=== PATIENT | female | born 1950 | race Caucasian/White ===

== ENCOUNTER 2017-08-10 15:45 | Emergency (ER) | payer MEDICARE, MEDICAID ==
[2017-08-10 15:45] VITALS: BMI 26.2
[2017-08-10] MEDS ORDERED: Iohexol 240 (50 ml) ONE (16:10)
[2017-08-10 16:57] LABS: SQUAMOUS EPITHIAL 4 /hpf (0-5); URINE BILIRUBIN NEGATIVE (NEGATIVE); URINE BLOOD NEGATIVE (NEGATIVE); URINE CLARITY SLIGHTY-CLOUDY (Clear); URINE COLOR YELLOW (YELLOW); URINE GLUCOSE (UA) NEG (Normal); URINE LEUKOCYTE ESTERASE TRACE Leu/uL (Negative); URINE NITRATE NEGATIVE (NEGATIVE); URINE PROTEIN 30 mg/dL (NEGATIVE); URINE UROBILINOGEN 0.2-1.0 mg/dL (0.2-1.0)
[2017-08-10 17:01] LABS: BASO # 0.1 K/uL (0.0-0.2); BASO % 0.7 % (0.0-2.0); EOS # 0.3 K/uL (0.0-0.7); EOS % 4.2 % (0.0-4.0); HEMOGLOBIN 12.2 g/dL (12.0-16.0); LYMPH # 1.6 K/uL (1.0-4.3); LYMPH % 20.6 % (20.0-40.0); MEAN CELL VOLUME 92.3 fl (81.0-99.0); MEAN CORPUSCULAR HEMOGLOBIN 31.2 pg (27.0-31.0); MEAN CORPUSCULAR HGB CONC 33.9 g/dL (33.0-37.0); MEAN PLATELET VOLUME 8.8 fl (7.2-11.7); MONO # 0.5 K/uL (0.0-0.8); MONO % 6.1 % (0.0-10.0); NEUT # 5.4 K/uL (1.8-7.0); NEUT % 68.4 % (50.0-75.0); NRBC % 0.2 % (0.0-0.0); RBC 3.9 Mil/uL (3.80-5.20); RED CELL DISTRIBUTION WIDTH 13.6 % (11.5-14.5); WHITE BLOOD COUNT 7.9 K/uL (4.8-10.8)
[2017-08-10 17:13] LABS: ALB/GLOB RATIO 1.1 (1.0-2.1); ALBUMIN 3.9 g/dL (3.5-5.0); ALT/SGPT 31 U/L (9-52); AST/SGOT 30 U/L (14-36); BLOOD UREA NITROGEN 16 mg/dl (7-17); CALCIUM 9.4 mg/dL (8.4-10.2); GFR AFRICAN-AMERICAN > 60; GFR NON-AFRICAN AMERICAN > 60; LIPASE 103 U/L (23-300)
[2017-08-10] MEDS ORDERED: Sodium Chloride 0.9% 50 ML IV ONE (17:20)
[2017-08-10] MEDS ORDERED: Iohexol 300 100 ML IJ ONE (17:20)
--- NOTE | 2017-08-10 18:09 | ED PDOC ---
HPI: Abdomen Time Seen by Provider: 08/10/17 15:57 Chief Complaint (Nursing): Abdominal Pain Chief Complaint (Provider): RLQ pain History Per: Patient History/Exam Limitations: no limitations Location Of Pain/Discomfort: RLQ Quality Of Discomfort: Stabbing Associated Symptoms: Nausea, Back Pain. denies: Vomiting, Loss Of Appetite, Constipation, Urinary Symptoms Additional Complaint(s): 66yo F in ED for eval of acute RLQ pain noted while at her daughters wedding- sates pain was sharp intense causing her to be very nauseous. admits to similar symptoms not as intense in past 2 days. no change in BM no vomiting no fever no chills. pt states abd pain radiated to the back Abnormal Vaginal Bleeding: No Past Medical History Reviewed: Historical Data, Nursing Documentation, Vital Signs Vital Signs: Last Vital Signs Temp 98.5 F 08/10/17 15:51 Pulse 66 08/10/17 15:51 Resp 16 08/10/17 15:51 BP 158/78 H 08/10/17 15:51 Pulse Ox 100 08/10/17 18:24 - Medical History PMH: Anemia, Gall Bladder Disease (GALLSTONES CHOLECTSTECTOMY), HTN, Osteoporosis (OSTEOPENIA), Peripheral Edema (ONLY IN HUMOD WEATHER NOT AT PRESENT) - Surgical History Surgical History: Cholecystectomy - Family History Family History: States: No Known Family Hx - Home Medications Home Medications: Ambulatory Orders Medication Instructions Recorded Hydrochlorothiazide/Losartan 1 tab PO BID 03/13/14 [Losartan Potassium-Hydrochlorothiazide 12.5 M] Meclizine [Antivert] 12.5 mg PO DAILY 03/13/14 Ibuprofen [Motrin] 400 mg PO Q6 #30 tab 08/10/17 - Allergies Allergies/Adverse Reactions: Allergies Allergy/AdvReac Type Severity Reaction Status Date / Time tetanus and diphtheria Allergy SWELLING Verified 08/10/17 15:54 toxoids risedronate sodium AdvReac SHORTNESS Verified 08/10/17 15:54 [From Actonel] OF BREATH OSTEOPOROSIS MEDICINE AdvReac Severe SHORTNESS Uncoded 03/10/14 14:03 OF BREATH Review of Systems ROS Statement: Except As Marked, All Systems Reviewed And Found Negative Constitutional: Negative for: Fever, Chills Respiratory: Negative for: Cough Physical Exam - Reviewed Nursing Documentation Reviewed: Yes Vital Signs Reviewed: Yes - Physical Exam Appears: Positive for: Well, Non-toxic, No Acute Distress Skin: Positive for: Normal Color, Warm, DRY Cardiovascular/Chest: Positive for: Regular Rate, Rhythm Respiratory: Positive for: CNT, Normal Breath Sounds Gastrointestinal/Abdominal: Positive for: Tenderness (RLQ), Guarding. Negative for: Organomegaly, Mass, Distended Neurologic/Psych: Positive for: Alert, Oriented - Laboratory Results Result Diagrams: 08/10/17 16:30 08/10/17 16:30 - ECG O2 Sat by Pulse Oximetry: 100 - Progress ED Course And Treament: Orders Category Date Time Status ABD & PELVIS IV CONTRAST ONLY [CT] Stat CT 08/10/17 16:31 Completed COMP METABOLIC PANEL Stat Chem 08/10/17 16:30 Completed LIPASE Stat Chem 08/10/17 16:30 Completed CBC (WITH DIFFERENTIAL) Stat NITIN 08/10/17 16:30 Completed Iohexol [Omnipaque 240 (50 ML)] Med 08/10/17 16:10 Discontinued 50 ml .ROUTE .STK-MED ONE Iohexol [Omnipaque 300 100 ML] Med 08/10/17 17:20 Discontinued 100 ml IJ .STK-MED ONE Ketorolac [Toradol] Med 08/10/17 16:10 Discontinued 30 mg .ROUTE .STK-MED ONE Ketorolac [Toradol] Med 08/10/17 15:58 Discontinued 30 mg IVP STAT STA Sodium Chloride 0.9% 50 ml Med 08/10/17 17:20 Discontinued IV .STK-MED BLOOD CULTURE Stat Micro 08/10/17 16:30 Received Ski Instructor CONT NURSING 08/10/17 15:58 Active IV Insertion (Saline Lock) ONCE NURSING 08/10/17 15:58 Active URINALYSIS Stat URINALYSIS 08/10/17 16:30 Completed Re-evaluation Time: 18:47 Condition: Improved Medical Decision Making Medical Decision Making: CT results: ABDOMEN: Liver: There is fatty infiltration of the liver. Gallbladder and bile ducts: Gallbladder is absent.There is prominence of the common duct. Pancreas: unremarkable Spleen: unremarkable Adrenals: unremarkable Kidneys and ureters: There is a left renal cyst.Kidneys and ureters are otherwise unremarkable. Stomach and bowel: Stomach is almost completely empty. Rotation is normal. Small bowel is partially opacified with oral contrast. There is no obstruction. There is fecalization of the terminal ileum.There is no pericecal inflammation. There is moderate stool in the colon. Appendix: See stomach and bowel PELVIS: Bladder: unremarkable Reproductive: Uterus is absent. There are no adnexal masses. ABDOMEN and PELVIS: Intraperitoneal space: There are multiple phleboliths.There is no free air or free fluid. Bones/joints: Bony structures are osteopenic. There are degenerative changes. Soft tissues: unremarkable Vasculature: Vascular structures are unremarkable. Lymph nodes: There is no pathologic adenopathy. IMPRESSION: Prominent common duct status post cholecystectomy; fatty liver; hysterectomy; nonvisualization the appendix but no CT findings of appendicitis; possible constipation Additional findings as described above no evidence of appendicitis, renal stones or adenexal mass. pt may have mesenteric adentitis as a cause of her pain Pt advised to consume motrin for any pain and f.u with pmd. Disposition - Clinical Impression Clinical Impression: Abdominal pain - Patient ED Disposition Is Patient to be Admitted: No Counseled Patient/Family Regarding: Studies Performed, Diagnosis, Need For Followup, Rx Given - Disposition Referrals: Sonido Hoffman MD [Staff Provider] - Disposition: Routine/Home Disposition Time: 18:50 Condition: STABLE Additional Instructions: please make sure you follow up with your doctor as soon as possible Prescriptions: Ibuprofen [Motrin] 400 mg PO Q6 #30 tab Instructions: Mesenteric Adenitis (ED) Print Language: NEPALI
--- NOTE | 2017-08-10 18:33 | CT ---
EXAM: CT Abdomen and Pelvis With Intravenous Contrast EXAM DATE/TIME: 08/10/2017 4:31 PM CLINICAL HISTORY: 66 years old, female; Pain; Abdominal pain; Generalized; Additional info: Rlq pain TECHNIQUE: Axial computed tomography images of the abdomen and pelvis with intravenous contrast. All CT scans at this facility use one or more dose reduction techniques, viz.: automated exposure control; ma/kV adjustment per patient size (including targeted exams where dose is matched to indication; i.e. head); or iterative reconstruction technique. Coronal and sagittal reformatted images were created and reviewed. CONTRAST: 95 mL of [id number] administered intravenously. COMPARISON: There are no prior studies for comparison. FINDINGS: Lower thorax: Heart size is normal. There is atelectasis and scarring at the lung bases ABDOMEN: Liver: There is fatty infiltration of the liver. Gallbladder and bile ducts: Gallbladder is absent.There is prominence of the common duct. Pancreas: unremarkable Spleen: unremarkable Adrenals: unremarkable Kidneys and ureters: There is a left renal cyst.Kidneys and ureters are otherwise unremarkable. Stomach and bowel: Stomach is almost completely empty. Rotation is normal. Small bowel is partially opacified with oral contrast. There is no obstruction. There is fecalization of the terminal ileum.There is no pericecal inflammation. There is moderate stool in the colon. Appendix: See stomach and bowel PELVIS: Bladder: unremarkable Reproductive: Uterus is absent. There are no adnexal masses. ABDOMEN and PELVIS: Intraperitoneal space: There are multiple phleboliths.There is no free air or free fluid. Bones/joints: Bony structures are osteopenic. There are degenerative changes. Soft tissues: unremarkable Vasculature: Vascular structures are unremarkable. Lymph nodes: There is no pathologic adenopathy. IMPRESSION: Prominent common duct status post cholecystectomy; fatty liver; hysterectomy; nonvisualization the appendix but no CT findings of appendicitis; possible constipation Additional findings as described above.
[2017-08-10 19:25] VITALS: BP 148/78; PULSE 70; RESP 18; TEMP 98.2; O2SAT 99
== END 2017-08-10 19:28 | disposition home or self-care (01) ==
LOC: H.ER 15:45
DX: I88.0 Nonspecific mesenteric lymphadenitis (principal); Z90.49 Acquired absence of other specified parts of digestive tract; Z90.710 Acquired absence of both cervix and uterus; N28.1 Cyst of kidney, acquired; K76.0 Fatty (change of) liver, not elsewhere classified; I10 Essential (primary) hypertension; M81.0 Age-related osteoporosis without current pathological fracture
CPT/HCPCS: 74177; 80053; 81003; 83690; 85025; 87040; 96374; 99282; J1885; Q9967